=== PATIENT | female | born 1965 | race Caucasian/White ===

== ENCOUNTER 2021-07-13 15:51 | Emergency (ER) | payer OTHER ==
[~2021-07-13] VITALS: Ht 157.5 cm; Wt 48.5 kg
[2021-07-13] MEDS ORDERED: Norco 5-325 Ta1 EACH PO (17:50)
[2021-07-13] MEDS ORDERED: ONDA4 PO (17:50)
== END 2021-07-13 18:59 | disposition home or self-care (01) ==
LOC: ER 15:51
DX: S62.616A Displaced fracture of proximal phalanx of right little finger, initial encounter for closed fracture (principal); W19.XXXA Unspecified fall, initial encounter
CPT/HCPCS: 26605; 73130; 73140; 99283-25; A9270